=== PATIENT | male | born 1980 | race Caucasian/White ===

== ENCOUNTER 2017-08-25 18:44 | Inpatient (IN) | payer SELFPAY ==
[2017-08-25 19:55] LABS: BASO % 0 % (0-3); EOS % 0 % (0-3); HEMATOCRIT 39.2 % (39.0-53.0); HEMOGLOBIN 13.3 g/dL (13.0-17.5); LYMPH # 0.2 x10^3/uL (1.0-4.8); LYMPH % 6 % (24-48); MEAN CORPUSCULAR HEMOGLOBIN 31 pg (25-35); MEAN CORPUSCULAR HGB CONC 34 g/dL (31-37); MEAN CORPUSCULAR VOLUME 90 fL (79-100); MONO # 0.3 x10^3/uL (0.0-1.1); MONO % 7 % (0-9); NEUT # 3.1 x10^3uL (1.8-7.7); NEUT % 87 % (31-73); PLATELET COUNT 28 x10^3/uL (140-400); RED BLOOD COUNT 4.37 x10^6/uL (4.30-5.70); RED CELL DISTRIBUTION WIDTH 14.7 % (11.5-14.5); WHITE BLOOD COUNT 3.6 x10^3/uL (4.0-11.0)
[2017-08-25] MEDS: IV NORMAL SALINE 1000ML BAG 1,000 ML IV ×2 (19:56→20:46)
[2017-08-25 19:58] LABS: ADD MAN DIFF? YES
[2017-08-25 20:01] LABS: ETHANOL < 10 mg/dL (0-10)
[2017-08-25 20:12] LABS: ANION GAP 13 (6-14); BLOOD UREA NITROGEN 14 mg/dL (8-26); CALCIUM 9.2 mg/dL (8.5-10.1); CARBON DIOXIDE 29 mmol/L (21-32); CHLORIDE 88 mmol/L (98-107); CREATININE 0.9 mg/dL (0.7-1.3); GLUCOSE 258 mg/dL (70-99); POTASSIUM 4.2 mmol/L (3.5-5.1); SODIUM 130 mmol/L (136-145)
[2017-08-25 20:15] LABS: ALBUMIN 3.9 g/dL (3.4-5.0); ALK PHOS 94 U/L (46-116); ALT (SGPT) 125 U/L (16-63); AST (SGOT) 143 U/L (15-37); DIRECT BILIRUBIN 0.5 mg/dL (0.0-0.2); TOTAL BILIRUBIN 1.7 mg/dL (0.2-1.0); TOTAL PROTEIN 7.4 g/dL (6.4-8.2)
[2017-08-25 20:26] LABS: LACTIC ACID 5.2 mmol/L (0.4-2.0)
[2017-08-25 20:26] LABS: % BANDS 3 % (0-9); % LYMPHS 9 % (24-48); % MONOS 6 % (0-10); % SEGS 82 % (35-66); PLT ESTIMATE DECREASED (ADEQUATE)
[2017-08-25] MEDS: DIPHTH,PERTUSS(ACELL),TET TOX 0.5 ML DISP.SYRIN. VAX IM (20:41)
[2017-08-25] MEDS ORDERED: ONDANSETRON PF 4 MG/2 ML VIAL. IV (20:45)
[2017-08-25 23:59] LABS: LACTIC ACID 1.2 mmol/L (0.4-2.0)
[2017-08-27 05:46] LABS: ADD MAN DIFF? NO
[2017-08-27 06:04] LABS: BASO % 0 % (0-3); EOS # 0.1 x10^3/uL (0.0-0.7); EOS % 3 % (0-3); HEMATOCRIT 36.5 % (39.0-53.0); HEMOGLOBIN 12.6 g/dL (13.0-17.5); LYMPH # 0.7 x10^3/uL (1.0-4.8); LYMPH % 23 % (24-48); MEAN CORPUSCULAR HEMOGLOBIN 32 pg (25-35); MEAN CORPUSCULAR HGB CONC 34 g/dL (31-37); MEAN CORPUSCULAR VOLUME 93 fL (79-100); MONO # 0.5 x10^3/uL (0.0-1.1); MONO % 16 % (0-9); NEUT # 1.9 x10^3uL (1.8-7.7); NEUT % 58 % (31-73); PLATELET COUNT 27 x10^3/uL (140-400); RED BLOOD COUNT 3.94 x10^6/uL (4.30-5.70); RED CELL DISTRIBUTION WIDTH 14.5 % (11.5-14.5); WHITE BLOOD COUNT 3.2 x10^3/uL (4.0-11.0)
[2017-08-27 06:43] LABS: ANION GAP 12 (6-14); BLOOD UREA NITROGEN 10 mg/dL (8-26); CALCIUM 9.1 mg/dL (8.5-10.1); CARBON DIOXIDE 27 mmol/L (21-32); CHLORIDE 97 mmol/L (98-107); CREATININE 0.7 mg/dL (0.7-1.3); GFR 128.3; GLUCOSE 75 mg/dL (70-99); MAGNESIUM 1.9 mg/dL (1.8-2.4); POTASSIUM 3.5 mmol/L (3.5-5.1); SODIUM 136 mmol/L (136-145)
== END 2017-08-27 10:00 | disposition home or self-care (01) | DRG 897 ==
LOC: ER 18:44 → 5 NORTH 19:20
DX: F10.239 Alcohol dependence with withdrawal, unspecified (principal); D69.6 Thrombocytopenia, unspecified; R56.9 Unspecified convulsions; E87.1 Hypo-osmolality and hyponatremia; D72.819 Decreased white blood cell count, unspecified; S01.81XA Laceration without foreign body of other part of head, initial encounter; W18.39XA Other fall on same level, initial encounter; I10 Essential (primary) hypertension; J32.0 Chronic maxillary sinusitis; Z83.3 Family history of diabetes mellitus; Y93.89 Activity, other specified; Y92.89 Other specified places as the place of occurrence of the external cause; Y99.8 Other external cause status
CPT/HCPCS: 36415; 70450; 70486; 72125; 80048; 80076; 83605; 83735; 85007; 85025; 90715; 93005; G0480; J2060; J7030

== ENCOUNTER 2018-07-23 15:48 | Emergency (ER) | payer SELFPAY ==
[~2018-07-23] VITALS: Ht 182.9 cm; Wt 77.1 kg
[2018-07-23] MEDS ORDERED: MULTIVIT INFUSN,ADULT 4,VIT K 10 ML, THIAMINE INJ 100 MG, FOLIC ACID INJ 1 MG in IV NOR... IV ONE (16:00)
[2018-07-23] MEDS ORDERED: IV NORMAL SALINE 1000ML BAG 1,000 ML IV ONE (16:00)
--- NOTE | 2018-07-23 16:07 | PHYS DOC ---
Past Medical History Past Medical History: Alcoholism, Hypertension, Other Additional Past Medical Histor: seizures Past Surgical History: Other Additional Past Surgical Histo: l knee Alcohol Use: Heavy Drug Use: None Adult General Chief Complaint Chief Complaint: ALCOHOL INTOXICATION HPI HPI Patient is a 37 year old male who presents with drinks a bottle of vodka over the span of today. Patient was caught driving while intoxicated by police. There was no vehicle accident or trauma to the patient. Patient is alert and oriented. Patient is not currently steady on his feet. Patient answers all questions appropriately. Patient denies any pain, chest pain, shortness of air, abdominal pain, nausea, vomiting, dizziness, headache, falling. Review of Systems Review of Systems Constitutional: Intoxicated. Denies fever or chills [] Eyes: Denies change in visual acuity, redness, or eye pain [] HENT: Denies nasal congestion or sore throat [] Respiratory: Denies cough or shortness of breath [] Cardiovascular: No additional information not addressed in HPI [] GI: Denies abdominal pain, nausea, vomiting, bloody stools or diarrhea [] : Denies dysuria or hematuria [] Musculoskeletal: Denies back pain or joint pain [] Integument: Denies rash or skin lesions [] Neurologic: Denies headache, focal weakness or sensory changes [] All other systems were reviewed and found to be within normal limits, except as documented in this note. Current Medications Current Medications Current Medications Medications (Trade) Dose Ordered Sig/Ramiro Start Time Stop Time Status Last Admin Dose Admin Multivitamins 10 ml/Thiamine HCl 100 mg/Folic Acid 1 mg/Sodium Chloride 1,011.2 ml @ 1,000.088 mls/hr 1X ONCE 07/23/18 16:00 07/23/18 17:00 DC 07/23/18 16:36 1,000.088 MLS/HR Sodium Chloride 1,000 ml @ 1,000 mls/hr 1X ONCE 07/23/18 16:00 07/23/18 16:59 DC 07/23/18 16:18 1,000 MLS/HR Allergies Allergies Allergies Coded Allergies Type Severity Reaction Last Updated Verified No Known Drug Allergies 07/06/15 No Physical Exam Physical Exam Constitutional: Well developed, well nourished, no acute distress, non-toxic appearance. [] HENT: Normocephalic, atraumatic, bilateral external ears normal, oropharynx moist, no oral exudates, nose normal. [] Eyes: PERRLA, EOMI, conjunctiva normal, no discharge. [] Neck: Normal range of motion, no tenderness, supple, no stridor. [] Cardiovascular:Heart rate regular rhythm, no murmur [] Lungs & Thorax: Bilateral breath sounds clear to auscultation [] Abdomen: Bowel sounds normal, soft, no tenderness, no masses, no pulsatile masses. [] Skin: Warm, dry, no erythema, no rash. [] Back: No tenderness, no CVA tenderness. [] Extremities: No tenderness, no cyanosis, no clubbing, ROM intact, no edema. [] Neurologic: Alert and oriented X 3, normal motor function, normal sensory function, no focal deficits noted. [] Psychologic: Intoxicated Affect normal, judgement not normal due to intoxication , mood normal. [] Current Patient Data Vital Signs Vital Signs Date Time Temp Pulse Resp B/P (MAP) Pulse Ox O2 Delivery O2 Flow Rate FiO2 07/23/18 17:00 75 17 148/84 (105) 99 Room Air 07/23/18 15:55 98.5 98.5 Lab Values Laboratory Tests Test 07/23/18 16:20 07/23/18 16:37 White Blood Count 9.1 x10^3/uL (4.0-11.0) Red Blood Count 5.95 x10^6/uL (4.30-5.70) H Hemoglobin 18.5 g/dL (13.0-17.5) H Hematocrit 53.2 % (39.0-53.0) H Mean Corpuscular Volume 90 fL (79-100) Mean Corpuscular Hemoglobin 31 pg (25-35) Mean Corpuscular Hemoglobin Concent 35 g/dL (31-37) Red Cell Distribution Width 14.4 % (11.5-14.5) Platelet Count 167 x10^3/uL (140-400) Neutrophils (%) (Auto) 83 % (31-73) H Lymphocytes (%) (Auto) 11 % (24-48) L Monocytes (%) (Auto) 5 % (0-9) Eosinophils (%) (Auto) 1 % (0-3) Basophils (%) (Auto) 0 % (0-3) Neutrophils # (Auto) 7.6 x10^3uL (1.8-7.7) Lymphocytes # (Auto) 1.0 x10^3/uL (1.0-4.8) Monocytes # (Auto) 0.5 x10^3/uL (0.0-1.1) Eosinophils # (Auto) 0.0 x10^3/uL (0.0-0.7) Basophils # (Auto) 0.0 x10^3/uL (0.0-0.2) Sodium Level 140 mmol/L (136-145) Potassium Level 4.0 mmol/L (3.5-5.1) Chloride Level 98 mmol/L (98-107) Carbon Dioxide Level 26 mmol/L (21-32) Anion Gap 16 (6-14) H Blood Urea Nitrogen 16 mg/dL (8-26) Creatinine 1.1 mg/dL (0.7-1.3) Estimated GFR (Cockcroft-Gault) 75.7 Glucose Level 133 mg/dL (70-99) H Calcium Level 8.7 mg/dL (8.5-10.1) Magnesium Level 2.0 mg/dL (1.8-2.4) Ethyl Alcohol Level 446 mg/dL (0-10) *H Glucose (Fingerstick) 123 mg/dL (70-99) H Laboratory Tests 07/23/18 16:20 Laboratory Tests 07/23/18 16:20 EKG EKG [] Radiology/Procedures Radiology/Procedures [] Course & Med Decision Making Course & Med Decision Making Patient is a 37 year old male who presents with drinks a bottle of vodka over the span of today. Patient was caught driving while intoxicated by police. There was no vehicle accident or trauma to the patient. Patient is alert and oriented. Patient is not currently steady on his feet. Patient answers all questions appropriately. Patient denies any pain, chest pain, shortness of air, abdominal pain, nausea, vomiting, dizziness, headache, falling. Abdomen is soft and nontender. Lungs are clear as to show lobes. PERRLA. Patient has no abrasions or deformities or trauma to his head and neck are the rest of his body. Rate is regular and no murmur. Patient has no swelling to extremities. Patient is calm and cooperative. Patient is alert, oriented, not slurring his words, is appropriate and calm. Patient still denies pain, chest pain, shortness of air, headache, nausea, vomiting, abdominal pain. Patient has had a normal saline bolus and Banana bag. Patient is walked around ED and walks with a steady gate. Patient is currently calling for a ride home. Dragon Disclaimer Dragon Disclaimer This electronic medical record was generated, in whole or in part, using a voice recognition dictation system. Departure Departure Impression: Primary Impression: Alcohol intoxication Disposition: 01 HOME, SELF-CARE Condition: STABLE Referrals: NO PCP (PCP) Patient Instructions: Alcohol Intoxication Additional Instructions: Do not drink and drive. Follow-up through primary care. Scripts No Active Prescriptions or Reported Meds Problem Qualifiers Primary Impression: Alcohol intoxication Complication of substance-induced condition: uncomplicated Qualified Codes: F10.920 - Alcohol use, unspecified with intoxication, uncomplicated MEMO MCNEILL SURVEILLANCE SENSOR OFFICER Jul 23, 2018 16:07
[2018-07-23 16:26] LABS: BASO % 0 % (0-3); EOS % 1 % (0-3); HEMATOCRIT 53.2 % (39.0-53.0); HEMOGLOBIN 18.5 g/dL (13.0-17.5); LYMPH % 11 % (24-48); MEAN CORPUSCULAR HEMOGLOBIN 31 pg (25-35); MEAN CORPUSCULAR HGB CONC 35 g/dL (31-37); MEAN CORPUSCULAR VOLUME 90 fL (79-100); MONO # 0.5 x10^3/uL (0.0-1.1); MONO % 5 % (0-9); NEUT # 7.6 x10^3uL (1.8-7.7); NEUT % 83 % (31-73); PLATELET COUNT 167 x10^3/uL (140-400); RED BLOOD COUNT 5.95 x10^6/uL (4.30-5.70); RED CELL DISTRIBUTION WIDTH 14.4 % (11.5-14.5); WHITE BLOOD COUNT 9.1 x10^3/uL (4.0-11.0)
[2018-07-23 16:38] LABS: CALCIUM 8.7 mg/dL (8.5-10.1); CREATININE 1.1 mg/dL (0.7-1.3); GFR 75.7
[2018-07-23 18:24] VITALS: BP 153/82
== END 2018-07-23 18:45 | disposition home or self-care (01) ==
LOC: ER 15:48
DX: F10.229 Alcohol dependence with intoxication, unspecified (principal); Y90.8 Blood alcohol level of 240 mg/100 ml or more; I10 Essential (primary) hypertension
CPT/HCPCS: 36415; 80048; 82962; 83735; 85025; 96365; 96366; 99283; G0480; J7030

== ENCOUNTER 2019-02-20 22:01 | Inpatient (IN) | payer SELFPAY ==
[~2019-02-20] VITALS: Ht 170.2 cm; Wt 74.4 kg
[2019-02-20 22:44] LABS: BASO % 0 % (0-3); EOS # 0.2 x10^3/uL (0.0-0.7); EOS % 5 % (0-3); HEMATOCRIT 44.7 % (39.0-53.0); HEMOGLOBIN 15.6 g/dL (13.0-17.5); LYMPH # 1.1 x10^3/uL (1.0-4.8); LYMPH % 37 % (24-48); MEAN CORPUSCULAR HEMOGLOBIN 31 pg (25-35); MEAN CORPUSCULAR HGB CONC 35 g/dL (31-37); MEAN CORPUSCULAR VOLUME 88 fL (79-100); MONO # 0.2 x10^3/uL (0.0-1.1); MONO % 8 % (0-9); NEUT # 1.5 x10^3/uL (1.8-7.7); NEUT % 50 % (31-73); PLATELET COUNT 118 x10^3/uL (140-400); RED BLOOD COUNT 5.11 x10^6/uL (4.30-5.70); RED CELL DISTRIBUTION WIDTH 14.7 % (11.5-14.5)
[2019-02-20 22:57] LABS: CALCIUM 8.4 mg/dL (8.5-10.1); CREATININE 0.8 mg/dL (0.7-1.3); GFR 108.8; POTASSIUM 4.1 mmol/L (3.5-5.1)
[2019-02-20 23:02] LABS: ALBUMIN 4.1 g/dL (3.4-5.0); TOTAL BILIRUBIN 0.8 mg/dL (0.2-1.0); TOTAL PROTEIN 8.1 g/dL (6.4-8.2)
[2019-02-20 23:04] LABS: ACETAMIN < 2.0 mcg/ml (10-30); SALIC < 2.8 mg/dL (2.8-20.0)
[2019-02-20 23:07] LABS: ETHANOL 447 mg/dL (0-10)
--- NOTE | 2019-02-20 23:43 | PHYS DOC ---
Past Medical History Past Medical History: Alcoholism, Hypertension, Other Additional Past Medical Histor: seizures Past Surgical History: Other Additional Past Surgical Histo: l knee Alcohol Use: Heavy Drug Use: None Adult General Chief Complaint Chief Complaint: ALCOHOL INTOXICATION HPI HPI Patient is a 38 year old M BIBA WITH CC OF SUICIDAL DIEATION AND ETOH . DRANK ALCOHOL A COUPLE OF PINTS. MOM CALLED PD AND SAID HE WAS SUICIDAL, PER REPORT OF EMS I CALLED MOM AT 2300, NO ANSWER. PT SAID I COULD CURRENTLY DENIES SUICIDALITY "IF I WANTED TO DO THAT I ALREADY WOULD HAVE" Review of Systems Review of Systems DAVIS BY INTOX Allergies Allergies Allergies Coded Allergies Type Severity Reaction Last Updated Verified No Known Drug Allergies 07/06/15 No Physical Exam Physical Exam Constitutional: Well developed, well nourished,SLURRED SPEECH HENT: Normocephalic, atraumatic, bilateral external ears normal, oropharynx moist, no oral exudates, nose normal. [] Eyes: PERRLA, EOMI, conjunctiva normal, no discharge. [] Neck: Normal range of motion, no tenderness, supple, no stridor. [] Cardiovascular:Heart rate regular rhythm, no murmur [] Lungs & Thorax: Bilateral breath sounds clear to auscultation [] Abdomen: Bowel sounds normal, soft, no tenderness, no masses, no pulsatile m asses. [] Skin: Warm, dry, no erythema, no rash. [] Back: No tenderness, no CVA tenderness. [] Extremities: No tenderness, no cyanosis, no clubbing, ROM intact, no edema. [] Neurologic: Alert and oriented X 3, normal motor function, normal sensory function, no focal deficits noted. [] Psychologic: ODD AFFECT, MILD ANXIETY DENIES OVERT SI AT THIS TIME. Current Patient Data Vital Signs Vital Signs Date Time Temp Pulse Resp B/P (MAP) Pulse Ox O2 Delivery O2 Flow Rate FiO2 02/20/19 23:32 152/103 (119) 02/20/19 22:01 98.6 90 16 100 Room Air 98.6 Lab Values Laboratory Tests Test 02/20/19 22:33 White Blood Count 3.0 x10^3/uL (4.0-11.0) L Red Blood Count 5.11 x10^6/uL (4.30-5.70) Hemoglobin 15.6 g/dL (13.0-17.5) Hematocrit 44.7 % (39.0-53.0) Mean Corpuscular Volume 88 fL (79-100) Mean Corpuscular Hemoglobin 31 pg (25-35) Mean Corpuscular Hemoglobin Concent 35 g/dL (31-37) Red Cell Distribution Width 14.7 % (11.5-14.5) H Platelet Count 118 x10^3/uL (140-400) L Neutrophils (%) (Auto) 50 % (31-73) Lymphocytes (%) (Auto) 37 % (24-48) Monocytes (%) (Auto) 8 % (0-9) Eosinophils (%) (Auto) 5 % (0-3) H Basophils (%) (Auto) 0 % (0-3) Neutrophils # (Auto) 1.5 x10^3/uL (1.8-7.7) L Lymphocytes # (Auto) 1.1 x10^3/uL (1.0-4.8) Monocytes # (Auto) 0.2 x10^3/uL (0.0-1.1) Eosinophils # (Auto) 0.2 x10^3/uL (0.0-0.7) Basophils # (Auto) 0.0 x10^3/uL (0.0-0.2) Sodium Level 139 mmol/L (136-145) Potassium Level 4.1 mmol/L (3.5-5.1) Chloride Level 98 mmol/L (98-107) Carbon Dioxide Level 28 mmol/L (21-32) Anion Gap 13 (6-14) Blood Urea Nitrogen 13 mg/dL (8-26) Creatinine 0.8 mg/dL (0.7-1.3) Estimated GFR (Cockcroft-Gault) 108.8 BUN/Creatinine Ratio 16 (6-20) Glucose Level 118 mg/dL (70-99) H Calcium Level 8.4 mg/dL (8.5-10.1) L Total Bilirubin 0.8 mg/dL (0.2-1.0) Aspartate Amino Transferase (AST) 60 U/L (15-37) H Alanine Aminotransferase (ALT) 60 U/L (16-63) Alkaline Phosphatase 99 U/L (46-116) Total Protein 8.1 g/dL (6.4-8.2) Albumin 4.1 g/dL (3.4-5.0) Albumin/Globulin Ratio 1.0 (1.0-1.7) Salicylates Level < 2.8 mg/dL (2.8-20.0) L Salicylate Last Dose Date Unk Salicylate Last Dose Time Unk Acetaminophen Level < 2.0 mcg/ml (10-30) L Acetaminophen Last Dose Date Unk Acetaminophen Last Dose Time Unk Ethyl Alcohol Level 447 mg/dL (0-10) *H Laboratory Tests 02/20/19 22:33 Laboratory Tests 02/20/19 22:33 EKG EKG [] Radiology/Procedures Radiology/Procedures [] Course & Med Decision Making Course & Med Decision Making Pertinent Labs and Imaging studies reviewed. (See chart for details) []ETOH LEVEL 447 REPORT OF SI NEED COLLATERAL AND SOBRIETY RN D/W PAT TEAM SHERITA, PLAN FOR ADMIT AND AM CONSULTATION ADMIT TO [facility] PT CALM FOR THE MOST PART IN THE ER. VERBALLY REDIRECTABLE EASILY Dragon Disclaimer Dragon Disclaimer This electronic medical record was generated, in whole or in part, using a voice recognition dictation system. Departure Departure Impression: Primary Impression: Alcohol intoxication Additional Impression: Suicidal ideation Disposition: ADMITTED INPATIENT Admitting Physician: HIMS Condition: STABLE Referrals: NO PCP (PCP) Scripts No Active Prescriptions or Reported Meds Problem Qualifiers PLACIDO PACHECO MD Feb 20, 2019 23:43
[2019-02-20 23:56] LABS: BARBITURATES NEG (NEG); BENZODIAZEPINES NEG (NEG); CANNABINOIDS NEG (NEG); COCAINE NEG (NEG); METHADONE NEG (NEG); OPIATES NEG (NEG); PHENCYCLIDINE NEG (NEG)
[2019-02-20 23:59] LABS: AMPHETAMINE/METHAMPHETAMINE NEG (NEG)
[2019-02-21] MEDS ORDERED: MULTIVIT INFUSN,ADULT 4,VIT K 10 ML, THIAMINE INJ 100 MG, FOLIC ACID INJ 1 MG in IV NOR... IV ONE ×4
[2019-02-21 00:20] VITALS: BP 124/75
--- NOTE | 2019-02-21 01:00 | NUR ---
Pt arrived to unit approx 0020 via cart accompanied by ED staff and 1:1 sitter. Pt head to toe assessment completed. Pt denies taking any home meds also denies any drug allergies. Pt has a 1:1 sitter due to suicide ideations who is sitting in the devine and has patient within visual sight due to patient being inappropriate in ED. On unit patient is sarcastic when questions are asked. Pt would not tell me how much he drinks daily but Vodka is his drink of choice. When asking him about his suicide thoughts patient says he does not want to hurt himself. He does say he has had thoughts about it , but states he would not actually do it, and denies having a plan for it. Assessment questions were answered the best they could from info that was given to me by the patient. Pt was oriented to room and call light with is within reach. Prior to him coming to the floor room was stripped of anything that could hurt patient, example of phone cord, cords to turn on lights, trash cans ect. Rails were also lined with blankets due to his past seizure activities. IV site is functioning and banana bag is currently running. Will continue to monitor.
[2019-02-21 02:27] VITALS: BP 130/65
[2019-02-21 07:00] VITALS: BP 119/76
[2019-02-21] MEDS ORDERED: FOLIC ACID 1 MG TABLET. PO SCH (09:00)
[2019-02-21] MEDS ORDERED: MULTIVITAMIN with MINERAL TABLET. PO SCH (09:00)
[2019-02-21 11:00] VITALS: BP 133/76
--- NOTE | 2019-02-21 11:12 | HP ---
ADMIT DATE: 02/20/2019 CHIEF COMPLAINT: Suicidal ideation. HISTORY OF PRESENT ILLNESS: The patient is a pleasant 38-year-old male, who drinks about 2 liters of vodka a day. His alcohol level was near 500 when he came to the ER last night and started threatening people and threatening to kill himself. He was admitted overnight for suicidal ideation. This morning, he is being seen and examined on the medical floor where he is more alert and denies any suicidal ideation. I talked to the nurse and we are awaiting the psychiatric assessment team to come see him. PAST MEDICAL HISTORY: Previous suicide attempts, seizures, alcoholism, hypertension. ALLERGIES: None. FAMILY HISTORY: Hypertension. SOCIAL HISTORY: Drinks almost 2 liters a day of vodka. No smoking or drugs. He works at [employer]. MEDICATIONS: Reviewed, please refer to the MRAD. REVIEW OF SYSTEMS: GENERAL: No history of weight change, weakness or fevers. SKIN: No bruising, hair changes or rashes. EYES: No blurred, double or loss of vision. NOSE AND THROAT: No history of nosebleeds, hoarseness or sore throat. HEART: No history of palpitations, chest pain or shortness of breath on exertion. LUNGS: Denies cough, hemoptysis, wheezing or shortness of breath. GASTROINTESTINAL: Denies changes in appetite, nausea, vomiting, diarrhea or constipation. GENITOURINARY: No history of frequency, urgency, hesitancy or nocturia. NEUROLOGIC: Denies history of numbness, tingling, tremor or weakness. PSYCHIATRIC: No history of panic, anxiety or depression. ENDOCRINE: No history of heat or cold intolerance, polyuria or polydipsia. EXTREMITIES: Denies muscle weakness, joint pain, pain on walking or stiffness. PHYSICAL EXAMINATION: VITAL SIGNS: Stable. GENERAL: He is alert, cooperative, requesting discharge. HEART: Normal S1 and S2. LUNGS: Clear to auscultation. ABDOMEN: Soft, positive bowel sounds. EXTREMITIES: Trace edema. SKIN: No rash. ENDOCRINE: No thyromegaly. LYMPHATICS: No cervical nodes. HEMATOPOIETIC: No bruising. PSYCHIATRIC: He is stable and denies suicidal ideation. LABORATORY DATA: White count is 3, hemoglobin 15, platelets 118. Electrolytes are normal. Drug screen is negative. Alcohol level was positive at 447. ASSESSMENT AND PLAN: Resolving alcohol ingestion with chronic alcoholism with flare of aggressive behavior with suicidal gestures, but I think he was just drunk. This morning, he seems perfectly normal. We will ask the psychiatric assessment team to see him to be safe, hope to discharge this afternoon. For now, we are going to continue alcohol withdrawal protocol. SHIREEN ALEXANDER DO DR: CESAR/isabel JOB#: [id number] / [id number]
[2019-02-21 12:52] LABS: PROTHROMBIN TIME PATIENT 14.6 SEC (11.7-14.0)
[2019-02-21 15:00] VITALS: BP 135/85
--- NOTE | 2019-02-21 16:21 | NUR ---
SS following for discharge planning. PAT team called for assessment and evaluation. SS received phone contact from Rosa at the PAT team stating that she met with pt and pt is denying SI and HI at this time. She reported that pt has a DUI on file and is involved in court services to include intensive outpatient treatment. She reported that pt has court on . She reported that she provided pt with resources for [facility], [facility], and [facility] and reported that pt is safe for discharge to home when medically stable. Pt's RN notified.
--- NOTE | 2019-02-21 17:48 | NUR ---
Discharge instructions and belongings reviewed with patient, verbalized understanding. Patient was escorted out of the hospital via ambulation by Héctor BOWDEN. [employer] was waiting patient has cab pass.
--- NOTE | 2019-02-21 18:24 | DS ---
DATE OF DISCHARGE: 02/21/2019 ADMISSION DIAGNOSES: Alcohol intoxication and possible suicidal ideation. DISCHARGE DIAGNOSIS: Resolving alcohol intoxication. HOSPITAL COURSE: The patient is a pleasant middle-aged male presented to the ER last night drunk. He was screaming. There was some concern he might be suicidal. He was admitted overnight for observation. This morning, he is doing great. We had a PAT team see him. He looks great. We plan to discharge. DISPOSITION: Home. ACTIVITY: As tolerated. DIET: Low sodium. MEDICATIONS: Please see the MRAD. TOTAL TIME: 32 minutes. SIAL Mirian ALEXANDER DO DR: CESAR/isabel JOB#: [id number] / [id number]
--- NOTE | 2019-02-22 06:31 | EKG ---
[facility] [address] [place] [address] Test Date: 2019-02-20 Test Time: 22:49:38 Pat Name: MILO CABRAL Department: Room: Gender: M Data Communications Technician: : 1980 Requested By: PLACIDO PACHECO Order Number: [id number] Reading MD: Measurements Intervals [place] Rate: 89 P: 74 CT: 138 QRS: 68 QRSD: 104 T: 42 QT: 364 QTc: 444 Interpretive Statements SINUS RHYTHM NO SPECIFIC ECG ABNORMALITIES RI6.01 Unconfirmed report No previous ECG available for comparison
[2019-02-22] MEDS ORDERED: THIAMINE 100 MG TABLET. PO SCH (09:00)
== END 2019-02-21 18:00 | disposition home or self-care (01) | DRG 897 ==
LOC: ER 22:01 → 4 NORTH 23:30
PROVIDERS: ADMIT Internal Medicine; ATTEND Internal Medicine
DX: F10.229 Alcohol dependence with intoxication, unspecified (principal); R45.851 Suicidal ideations; I10 Essential (primary) hypertension; Z91.5 Personal history of self-harm; Z82.49 Family history of ischemic heart disease and other diseases of the circulatory system
CPT/HCPCS: 36415; 80053; 80307; 80329; 85025; 85610; 93005; 96365; G0480; J7030; 99285-25